=== PATIENT | male | born 1950 | race Caucasian/White ===

== ENCOUNTER 2016-09-15 07:45 | Inpatient (IN) | payer OTHER ==
[2016-08-21 08:45] VITALS: BMI 39.0
--- NOTE | 2016-08-21 09:29 | PAT Medication Instructions ---
Service Date Aug 21, 2016. Current Home Medication List Atorvastatin (Lipitor), 20 MG PO QPM Cyclobenzaprine HCl (Cyclobenzaprine HCl), 10 MG PO HS Gabapentin (Neurontin), 300 MG PO BID Glimepiride (Glimepiride), 4 MG PO QAM Lisinopril (Lisinopril), 10 MG PO QAM Loratadine (Claritin), 10 MG PO QAM PRN for SEASONAL ALLERGIES Meloxicam (Mobic), 15 MG PO QAM Pioglitazone (Actos), 1 TAB PO QAM Tramadol (Ultram), 50 MG PO HS Medication Instructions For Your Scheduled Surgery - Hold the following medications 10 days prior to surgery per surgeon's instructions: Meloxicam (Mobic), 15 MG PO QAM - Hold the following medications the morning of surgery: Glimepiride (Glimepiride), 4 MG PO QAM Lisinopril (Lisinopril), 10 MG PO QAM Pioglitazone (Actos), 1 TAB PO QAM Loratadine (Claritin), 10 MG PO QAM PRN for SEASONAL ALLERGIES - Take the following medications the morning of surgery with a sip of water OTHERWISE NOTHING TO EAT OR DRINK AFTER MIDNIGHT: Gabapentin (Neurontin), 300 MG PO BID - Take the following medications as scheduled the night before surgery: Tramadol (Ultram), 50 MG PO HS Atorvastatin (Lipitor), 20 MG PO QPM Cyclobenzaprine HCl (Cyclobenzaprine HCl), 10 MG PO HS Gabapentin (Neurontin), 300 MG PO BID If you have any questions please call us at [phone] or [phone] or [phone]
[2016-08-21 10:23] LABS: PROTHROMBIN TIME (PATIENT) 10.3 SECONDS (9.0-12.0)
--- NOTE | 2016-08-21 10:33 | DIAGNOSTIC IMAGING REPORT ---
CHEST PREADMISSION(PA/LAT) CLINICAL HISTORY: Preoperative chest COMPARISON STUDY: 04/02/2015 FINDINGS: The cardiac and mediastinal contours are normal. There is no evidence of focal pulmonary consolidation. There is no evidence of failure. No pleural effusions are visualized.[ There is mild widening of the left AC joint, likely chronic. IMPRESSION: No active disease in the chest. Electronically signed by: Dominic Jones M.D. 08/21/2016 10:32 AM Dictated Date/Time: 08/21/2016 10:31 AM
--- NOTE | 2016-09-09 01:48 | HISTORY & PHYSICAL EXAMINATION ---
DATE OF ADMISSION: 09/15/2016 CHIEF COMPLAINT: Left knee pain. HISTORY OF PRESENT ILLNESS: This is a 66-year-old gentleman and has a brother, Alvarez Redd, who works at the [employer], who presents for treatment of his left knee. He has a several-year history of increasing left knee pain and discomfort. He had his left knee scoped by Dr. Cuba back in September of 2015 without any relief. His symptoms have gradually gotten worse. He has been through extensive conservative care including oral medicines, injections of both steroids and viscosupplementation. It is really limiting his ability to be active. He could not dash this past year due to his knee pain. He says he cannot even walk to the mailbox without significant pain. He would like to have his knee fixed. PAST MEDICAL HISTORY: 1. Diabetes x4 years. 2. Hypertension. 3. Obesity with a BMI of 40. 4. Kidney stones. PAST SURGICAL HISTORY: Previous surgeries include: 1. Right distal biceps repair. 2. Left knee arthroscopy done in September 2015. 3. Right knee ACL reconstruction done by Dr. Cuba. 4. Left shoulder surgery x2 by Dr. Cuba. 5. Right shoulder surgery x2. ALLERGIES: None. CURRENT MEDICINES: Include: 1. Loratadine 10 mg a day. 2. Meloxicam 15 mg a day. 3. Lisinopril 10 mg a day. 4. Pioglitazone 30 mg. 5. Glimepiride 4 mg. 6. Cyclobenzaprine 10 mg a day. 7. Trazodone 50 mg at bedtime. 8. Atorvastatin 20 mg 3 times a day. 9. Gabapentin 300 mg twice a day. SOCIAL HISTORY: A 66-year-old male. He is . His brother is Alvarez Redd. Works at the [employer]. He is from [place]. He does chew tobacco. He does not smoke. FAMILY HISTORY: Noncontributory. REVIEW OF SYSTEMS: Significant for diabetes. Denies any chest pain. No shortness of breath. No history of DVT or PE. PHYSICAL EXAMINATION: GENERAL: Reveals a healthy, pleasant, middle-aged male. He looks to be in pretty good health. HEENT: Benign. NECK: Supple with no lymphadenopathy. LUNGS: Clear to auscultation. HEART: Regular rate and rhythm. ABDOMEN: Soft, nontender, nondistended. EXTREMITIES: Grossly neurovascularly intact except as follows: Examination of the left knee reveals that patient ambulates with a bit of a limp. He has got a moderate size knee joint effusion. He has got well healed portal sites. Range of motion 0-125. No instability. X-RAYS: X-rays of the left knee reviewed. It shows advanced left knee medial compartment DJD. 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 This has progressed from his films a year ago at [facility]. ASSESSMENT: A 66-year-old male diabetic with advanced medial compartment arthritis in his knee, unresponsive to conservative treatment including arthroscopy. He is pretty debilitated by this. Interestingly, he has got a terrible right knee but not all that symptomatic. He would like to proceed with left knee replacement. PLAN: We are going to take him to the operating room and do left total knee replacement. The risks and benefits of this procedure were explained to the patient including but not limited to DVT, PE, , infection, neurological injury, vascular injury, bleeding problem, pain, limited range of motion, stiffness, failure to relieve symptoms, incomplete relief of symptoms, need for further surgery in the future, fracture, leg length inequality, nerve palsy, etc. The patient understands and desires to proceed. Informed consent was obtained. We did talk to him about holding his lisinopril the morning of surgery and Mobic 10 days preoperatively. We will likely put some vancomycin in the cement due to his diabetes and relatively recent surgery. As far as discharge plans, he is planning to be discharged to home using [facility] home health program. I will see him back 2 weeks postop.
[2016-09-15] VITALS (7 sets, daily range): BP systolic 125–154; BP diastolic 64–88; PULSE 73–94; TEMP 36.4–37.2; O2SAT 94–97; Ht 177.8 cm; Wt 124.5 kg
[~2016-09-15] VITALS: Ht 177.8 cm; Wt 124.5 kg
[~2016-09-15 07:45] MED LIST: ACETAMINOPHEN 500 MG TAB PO SCH; ACT30 PO; ATOR-22 PO; BUPIVACAINE LIPOSOME 266 MG, BUPIVACAINE/EPINEPHRINE INJ 50 ML, SODIUM CHLORIDE 0.9% PF... INFIL SCH; CEFAZOLIN 3000 MG/65 ML D5W 65 ML IV SCH; CLR10 PO; FAMOTIDINE 20 MG TAB PO SCH; FLX10 PO; GABA-113 PO; GABAPENTIN 300 MG CAP PO SCH; GLIM4TAB2 PO; LACTATED RINGER'S 1000ML 1,000 ML IV SCH; LACTATED RINGER'S 1000ML 500 ML IV ONE; LACTATED RINGER'S 1000ML IV SCH; LISI-461 PO; MELO7.5T5 PO; METOCLOPRAMIDE HCL 10 MG TAB PO SCH; SCOPOLAMINE 1.5 MG TDSY TD SCH; TRAM-10 PO; TRANEXAMIC ACID INJ 1,000 MG in SODIUM CHLORIDE 0.9% 100ML 100 ML IV SCH
[2016-09-15] MEDS ORDERED: BUPIVACAINE 0.25% 30 ML VIAL ONE (07:53)
[2016-09-15] MEDS ORDERED: BUPIVACAINE 0.5 % 5 MG/1 ML PF 10ML VIAL ONE (07:54)
--- NOTE | 2016-09-15 08:25 | History & Physical Bridge Note ---
H&P Re-Evaluation Bridge Note: I have examined the patient, reviewed the History & Physical and in the interval since the performance of the History & Physical I have noted the following changes of clinical significance: No changes noted
[2016-09-15] MEDS ORDERED: BUPIVACAINE LIPOSOME 1/3% 266 MG/20 ML VIAL INFIL ONE (09:09)
[2016-09-15] MEDS ORDERED: SODIUM CHLORIDE 0.9% PF 50 ML VIAL ONE (09:09)
[2016-09-15] MEDS ORDERED: BUPIVACAINE/EPINEPHRINE 0.25% 1:200,000 30 ML VIAL ONE (09:09)
[2016-09-15] MEDS ORDERED: BACITRACIN 50000 UNIT VIAL ONE (09:09)
[2016-09-15] MEDS ORDERED: LIDOCAINE 2% 20 MG/ML 5ML SYR ONE (09:13)
[2016-09-15] MEDS ORDERED: FENTANYL CITRATE INJ 50 MCG/1 ML 2 ML VIAL ONE (09:13)
[2016-09-15] MEDS ORDERED: PROPOFOL IV EMULSION 10 MG/ML 20 ML VIAL IV ONE ×2 (09:13→11:48)
[2016-09-15] MEDS ORDERED: MIDAZOLAM HCL 1 MG/ML 2ML VIAL ONE (09:13)
[2016-09-15] MEDS ORDERED: KETAMINE HCL INJ 50 MG/ML 10 ML VIAL ONE (10:40)
[2016-09-15] MEDS ORDERED: VANCOMYCIN HCL 1000MG/20ML VIAL ONE (10:52)
[2016-09-15] MEDS ORDERED: PHENYLEPHRINE 100MCG/ML 5ML SYR ONE (10:59)
[2016-09-15] MEDS ORDERED: PHENYLEPHRINE 100MCG/ML 5ML SYR IV PRN (11:45)
[2016-09-15] MEDS ORDERED: ATROPINE SULFATE 0.1 MG/ML 5ML SYR IV PRN (11:45)
[2016-09-15] MEDS ORDERED: EpHEDrine SULFATE INJ 50 MG/ML AMP IV PRN (11:45)
[2016-09-15] MEDS ORDERED: ONDANSETRON INJ 2 MG/ML 2 ML VIAL IV PRN ×2 (11:45→12:00)
[2016-09-15] MEDS ORDERED: HYDROmorphone INJ 2 MG/ML SYR/VIAL IV PRN (11:45)
[2016-09-15] MEDS ORDERED: KETOROLAC TROMETHAMINE 30 MG/ML VIAL IV. PRN (11:45)
--- NOTE | 2016-09-15 11:59 | [facility] Post Operative Brief Note ---
Immediate Operative Summary Operative Date Sep 15, 2016. Pre-Operative Diagnosis left knee medial compartment degenerative joint disease Post-Operative Diagnosis left knee medial compartment degenerative joint disease Procedure(s) Performed Left Total Knee Arthroplasty Surgeon Dr. Marvel Kitchen Clinical Resource Nurse Surgeon(s) Og Gonzalez PA-C Estimated Blood Loss 50mL Findings Left Knee DJD Fluids (cc crystalloids) 1500 cc Specimens A: Left knee bone and tissue Drains None Anesthesia Spinal Complication(s) None Disposition Recovery Room / PACU
[2016-09-15] MEDS ORDERED: DEXTROSE 50% 50 ML SYR IV PRN (12:00)
[2016-09-15] MEDS ORDERED: ZOLPIDEM TARTRATE 5 MG TAB PO PRN (12:00)
[2016-09-15] MEDS ORDERED: LORATADINE 10 MG TAB PO PRN (12:00)
[2016-09-15] MEDS ORDERED: METOCLOPRAMIDE HCL INJ 5 MG/ML 2 ML VIAL IV PRN (12:00)
[2016-09-15] MEDS ORDERED: MoRPHine SULFATE 2 MG/ML CARP IV PRN (12:00)
[2016-09-15] MEDS ORDERED: BISACODYL 10 MG SUPP PR PRN (12:00)
[2016-09-15] MEDS ORDERED: GLUCOSE 10 TABS/TUBE PO PRN (12:00)
[2016-09-15] MEDS ORDERED: ALUMINUM/MAGNESIUM/SIMETH (MAALOX MAX) 30 ML UDC PO PRN (12:00)
[2016-09-15] MEDS ORDERED: TAMSULOSIN HCL 0.4 MG CAP PO PRN (12:00)
[2016-09-15] MEDS ORDERED: MAGNESIUM HYDROXIDE SUSP 30 ML UDC PO PRN (12:00)
[2016-09-15] MEDS ORDERED: GLUCAGON FOR INJ 1 MG VIAL SQ PRN (12:00)
[2016-09-15] MEDS ORDERED: SILVER SULFADIAZINE 1% CR 50 GM JAR EXT PRN (12:00)
[2016-09-15] MEDS ORDERED: GLUCOSE 40% GEL 15 GM TUBE PO PRN (12:00)
--- NOTE | 2016-09-15 12:31 | DIAGNOSTIC IMAGING REPORT ---
LEFT KNEE 1 OR 2 VIEWS ROUTINE CLINICAL HISTORY: Postop examination COMPARISON: None. DISCUSSION: There are postsurgical changes of a total left knee arthroplasty and patellar resurfacing. The femoral and tibial components appear well seated. There is air within the soft tissues consistent with recent surgery. Overlying anterior skin boone are evident. A linear opacity visualized superior to the patella on the lateral view, likely represents overlying artifact. IMPRESSION: Postsurgical changes of a total left knee arthroplasty. Electronically signed by: Dominic Jones M.D. 09/15/2016 12:28 PM Dictated Date/Time: 09/15/2016 12:27 PM
[2016-09-15] MEDS: SODIUM CHLORIDE 0.9% 1000ML 1,000 ML IV SCH ×3 (13:47→23:25)
--- NOTE | 2016-09-15 14:12 | Anesthesiology Progress Note ---
Anesthesia Post Op Note Date & Time Sep 15, 2016 at 14:11 Vital Signs Pain Intensity: 0.0 Vital Signs Past 12 Hours Date Time Temp Pulse Resp B/P Pulse Ox O2 Delivery O2 Flow Rate FiO2 09/15/16 13:35 36.8 84 16 153/82 97 Room Air 09/15/16 13:05 36.6 81 18 126/69 96 Room Air 09/15/16 13:05 96 Room Air 09/15/16 12:50 83 16 117/68 99 Nasal Cannula 2 09/15/16 12:35 36.4 84 16 120/69 99 Nasal Cannula 2 09/15/16 12:25 75 17 145/71 99 Nasal Cannula 2 09/15/16 12:15 36.2 81 16 122/67 99 Nasal Cannula 2 09/15/16 12:05 36.2 86 16 142/81 100 Mask 10 09/15/16 08:16 36.6 80 18 154/88 97 Room Air Notes Mental Status: alert / awake / arousable, participated in evaluation Pt Amnestic to Procedure: Yes Nausea / Vomiting: adequately controlled Pain: adequately controlled Airway Patency, RR, SpO2: stable & adequate BP & HR: stable & adequate Hydration State: stable & adequate Anesthetic Complications: no major complications apparent
[2016-09-15] MEDS: ACETAMINOPHEN 500 MG TAB PO SCH ×2 (14:25→21:35)
[2016-09-15] MEDS: KETOROLAC TROMETHAMINE 15 MG/ML VIAL IV. SCH ×2 (14:25→19:27)
[2016-09-15] MEDS: FERROUS GLUCONATE 324 MG TAB PO SCH ×2 (14:25→17:59)
[2016-09-15] MEDS: CHECK SCOPOLAMINE PATCH PLACEMENT SCH ×2 (16:00→23:26)
[2016-09-15] MEDS: OXYCODONE HCL IR 5 MG TAB (IMMEDIATE RELEASE) PO PRN ×2 (17:56→23:25)
[2016-09-15] MEDS: CEFAZOLIN IV 2,000 MG in DEXTROSE 5% 50ML 50 ML IV SCH (18:00)
[2016-09-15] MEDS ORDERED: TRANEXAMIC ACID INJ 1,000 MG in SODIUM CHLORIDE 0.9% 100ML 100 ML IV SCH (18:00)
[2016-09-15] MEDS: INSULIN HUMAN REGULAR SC SCH ×2 (18:02→21:43)
--- NOTE | 2016-09-15 21:25 | PROGRESS NOTE ---
DATE: 09/15/2016 SUBJECTIVE: This 66-year-old gentleman postop from a left knee replacement. He is doing pretty well. He rates his pain at a 4-5/10. No chest pain or shortness of breath. Not feeling dizzy or lightheaded. OBJECTIVE: VITAL SIGNS: Temperature 36.5. Vital signs stable. GENERAL: Reveals a pleasant, middle-aged male. He is sitting up and talking to his nurse this afternoon when I visited him. LUNGS: Clear to auscultation. HEART: Regular rate and rhythm. ABDOMEN: Soft, nontender. EXTREMITIES: Grossly neurovascularly intact except as follows: Examination of the left knee and leg reveals the leg to be well aligned. Dressing is clean, dry, and intact. He can dorsiflex and plantarflex his foot appropriately. He is neurologically intact. X-RAYS: X-rays of the left knee from recovery room were reviewed. It shows a cemented posterior stabilized total knee arthroplasty. Components looked to be in good position. No signs of problems. ASSESSMENT: A 66-year-old male diabetic postop from a left knee replacement, doing well. His pain is reasonably well controlled, but will likely need to supplement meds as his spinal wears off. PLAN: 1. DVT prophylaxis including thigh-high TEDs, SCDs, and aspirin twice a day. 2. PT/OT. Weightbearing as tolerated. Left total knee protocol. 3. Pain control, doing pretty well with current pain regimen. We will have to supplement this as the block wears off. 4. IV antibiotics x 24 hours. 5. Disposition: He is planning to be discharged to home with [facility] home health once adequately recovered.
[2016-09-15] MEDS: TAPENTADOL ER 50 MG TABCR PO SCH (21:32)
[2016-09-15] MEDS: TRAMADOL HCL 50 MG TAB PO SCH (21:32)
[2016-09-15] MEDS: ASPIRIN 325 MG ECTAB PO SCH (21:33)
[2016-09-15] MEDS: GABAPENTIN 300 MG CAP PO SCH (21:33)
[2016-09-15] MEDS: CYCLOBENZAPRINE HCL 10 MG TAB PO SCH (21:33)
[2016-09-15] MEDS: DOCUSATE SODIUM 100 MG CAP PO SCH (21:34)
[2016-09-15] MEDS: ATORVASTATIN 20 MG TAB PO SCH (21:34)
--- NOTE | 2016-09-16 01:40 | OPERATIVE REPORT ---
DATE OF OPERATION: 09/15/2016 SURGEON: Marvel Kitchen MD SPORTS COORDINATOR: ADRIANA Dalal PREOPERATIVE DIAGNOSIS: Left knee degenerative joint disease. POSTOPERATIVE DIAGNOSIS: Same. PROCEDURE PERFORMED: Left cemented posterior stabilized total knee arthroplasty. COMPLICATIONS: None. ESTIMATED BLOOD LOSS: 50 mL FLUID REPLACEMENT: 1500 mL crystalloid fluid replacement. TOURNIQUET TIME: 55 minutes at 300 mmHg. ANESTHESIA: Spinal with adductor canal block. DRAINS: None. SPECIMENS: Left knee sent for pathology. OPERATIVE INDICATIONS: The patient is a 66-year-old gentleman who has had a long history of knee problems in the past. Over the past several years, he has developed increased pain and discomfort in the left knee. His left knee scoped by Dr. Cuba about a year ago without any relief and things have just gotten worse since. X-rays show progressive left knee arthritis with loss of his medial joint space and area of what looks like avascular necrosis of the tibial plateau. The patient failed conservative treatment and elected to proceed with total knee arthroplasty. OPERATIVE FINDINGS: Operative findings revealed advanced left knee medial compartment DJD. He did look like he had a segment of avascular necrosis of the medial tibial plateau. He had grade 4 [id number] disease of the distal femur as well as the proximal tibia. There is no eburnation. The lateral and patellofemoral compartments were fairly well preserved. OPERATIVE IMPLANTS: Operative implants consisted of: 1. Biomet Vanguard size 75 left femoral component. 2. Biomet size 79 tibial tray. 3. A 10 mm posterior stabilized polyethylene insert. 4. A 34 x 8.5 all poly patella. OPERATIVE PROCEDURE: The patient taken to the operating room, identified and placed on the operating table in supine position. All contact areas were appropriately padded. IV antibiotics were provided by the anesthesia team. A spinal anesthetic and adductor canal block had been provided in the holding area. Villeda catheter was placed in sterile fashion. Left thigh tourniquet was then placed and the left lower extremity was then prepped and draped in the usual sterile fashion. Left leg was elevated and exsanguinated with Esmarch and tourniquet was placed at 300 mmHg. An anterior approach to the left knee was then performed through a longitudinal incision centered over the patella. Sharp dissection was carried out through the subcutaneous tissues down to the level of the extensor mechanism. A medial parapatellar arthrotomy incision was made. Some subperiosteal dissection was carried out medially. The fat pad was resected from beneath the patellar tendon. The lateral patellofemoral ligament was released. The patella was everted and knee was flexed. The osteophytes were taken off the distal femur. The ACL and PCL were then released from the distal femur and the tibia subluxated anteriorly. The external tibial alignment jig was then placed in the anterior face of the tibia and adjusted 16 mm medially. Proximal tibial cut was made to remove about 2 mm of bone from the most deficient aspect of the medial tibial plateau. The tibia was then sized to a size 79. Some osteophytes were taken off medial and posteromedially. Attention was then drawn to the femur. The distal femur was entered with a sharp drill bit. Intramedullary canal was suctioned. A left 6-degree valgus cutting guide was placed. Distal femoral cutting block was pinned in place. Distal femoral cut was made to take an additional 3 mm of bone off the distal femur. The femur was then sized to a size 75. We did downsize this slightly. The AP cutting block was pinned parallel to the epicondylar axis, which was 5 degrees of external rotation. The anterior cut, anterior chamfer, posterior cut, posterior chamfer cuts were made. Box cutting guide was placed and adjusted slightly lateral and the box cut was made. The knee was flexed. The remnants of the medial and lateral meniscus were excised. The osteophytes were taken off the posterior aspect of the femur. Trial femoral component was placed. Tibial tray was pinned in maximum external rotation and drill and stem punch were used to create defect in proximal tibia for the tibial tray. The knee was then trialed and the 10 mm insert fit most appropriately. Attention was then drawn to the patella. The patella was cleaned of all soft tissues. Patellar thickness measured 23 mm in thickness and was cut down to 14. It was sized to a size 34 patella. Lug holes were drilled for the 34 patella. The lateral osteophyte was removed. Patella button was placed. Knee was taken through range of motion and the patella tracked nicely with no thumbs test. Attention was then drawn toward placement of permanent components. All trial components were removed. A bone plug was placed in the distal femur to limit blood loss. A double batch of Palacos G cement was mixed with and additional gram of Vancomycin added due to Diabetes and previous surgery. A left size 75 posterior stabilized femoral component, size 79 tibial tray, a 10 mm posterior stabilized polyethylene insert, and a 34 x 8.5 all poly patella were then cemented in place. Knee was brought out into full extension until cement hardened. A final cement check was then performed. Pericapsular tissues were injected with a total of 100 mL of a combination of 20 mL of Exparel, 30 mL of normal saline, 50 mL of 0.25% Marcaine with epinephrine. The patient did receive 1 gram of tranexamic acid. The tourniquet was let down for final tourniquet time of 55 minutes. Hemostasis was assured with use of electrocautery. The extensor mechanism was then closed with a combination of #1 PDS suture and #1 Vicryl suture in a [id number] fashion. Extensor mechanism was checked and found to be intact. The subcutaneous tissues were then closed with 2-0 Dexon suture in a buried interrupted fashion. Skin was closed skin boone. Leg was then cleaned and dried and a sterile dressing of Xeroform, 4 x 4, sterile cast padding and Alec bandage were applied. The patient was then transferred to the recovery room in stable condition. The patient tolerated the procedure well with no complications. All needle and sponge counts were correct at the end of the operation. ADDENDUM: We did put 1 additional gram of vancomycin in this patient cement as he is diabetic, which is at some points is not real well controlled and had a recent knee surgery which I felt predispose him to increased risk of infection and warranted additional antibiotics in the cement. I attest to the content of the Intraoperative Record and any orders documented therein. Any exceptions are noted below. JACKIED
[2016-09-16] MEDS: CEFAZOLIN IV 2,000 MG in DEXTROSE 5% 50ML 50 ML IV SCH (02:47)
[2016-09-16] MEDS: KETOROLAC TROMETHAMINE 15 MG/ML VIAL IV. SCH ×4 (02:48→21:52)
[2016-09-16 03:50] VITALS: BP 149/83; PULSE 66; TEMP 36.9; O2SAT 95
[2016-09-16] MEDS: ACETAMINOPHEN 500 MG TAB PO SCH ×3 (05:37→21:55)
[2016-09-16] MEDS: SODIUM CHLORIDE 0.9% 1000ML 1,000 ML IV SCH (06:40)
[2016-09-16 07:15] LABS: HEMATOCRIT 38.3 % (42-52); MEAN CELL VOLUME 91.6 fL (80-100); MEAN CORPUSCULAR HEMOGLOBIN 30.6 pg (25-34); MEAN CORPUSCULAR HGB CONC 33.4 g/dl (32-36); MEAN PLATELET VOLUME 9.6 fL (7.4-10.4); PLATELET COUNT 178 K/uL (130-400); RED BLOOD COUNT 4.18 M/uL (4.7-6.1); WHITE BLOOD COUNT 8.98 K/uL (4.8-10.8)
[2016-09-16 07:39] VITALS: BP 140/70; PULSE 75; TEMP 36.9; O2SAT 96
[2016-09-16 07:42] LABS: BUN/CREATININE RATIO 12.9 (10-20); CALCIUM 8.4 mg/dl (8.5-10.1); CREATININE 0.87 mg/dl (0.60-1.40); POTASSIUM 3.9 mmol/L (3.5-5.1)
[2016-09-16 07:48] VITALS: O2SAT 96
[2016-09-16] MEDS: CHECK SCOPOLAMINE PATCH PLACEMENT SCH ×2 (07:54→16:04)
[2016-09-16] MEDS: GLIMEPIRIDE 2 MG TAB PO SCH (07:59)
[2016-09-16] MEDS: FERROUS GLUCONATE 324 MG TAB PO SCH ×3 (07:59→18:15)
[2016-09-16] MEDS: INSULIN HUMAN REGULAR SC SCH ×4 (08:00→21:00)
--- NOTE | 2016-09-16 08:39 | PROGRESS NOTE ---
DATE: 09/16/2016 SUBJECTIVE: A 66-year-old gentleman postop day #1 from left knee replacement. He is doing pretty well. He rates his pain at worse than a 5. Had a pretty good night. No chest pain or shortness of breath. Not feeling dizzy or lightheaded. OBJECTIVE: VITAL SIGNS: Temperature 36.9. Vital signs stable. PHYSICAL EXAMINATION: GENERAL: Reveals a healthy, pleasant middle-aged male. He is sitting up in bed and looks pretty comfortable. LUNGS: Clear to auscultation. HEART: Regular rate and rhythm. ABDOMEN: Soft, nontender, nondistended. EXTREMITIES: Grossly neurovascularly intact except as follows: Examination of the left leg reveals the dressing to be clean, dry and intact. He can dorsiflex and plantarflex his foot appropriately. NEUROLOGIC: Intact. LABORATORY DATA: Hemoglobin 12.8, hematocrit 38.3. Electrolytes are stable. ASSESSMENT: A 66-year-old gentleman postop day #1 from left knee replacement, doing pretty well. Pain is reasonably well controlled. PLAN: 1. DVT prophylaxis including thigh-high TEDs, SCDs, and aspirin twice a day. 2. PT/OT. Weightbearing as tolerated. Left total hip protocol. 3. Pain control, doing pretty well with current pain regimen. 4. Disposition: Planning to be discharged to home with some home health once adequately recovered.
[2016-09-16] MEDS: GABAPENTIN 300 MG CAP PO SCH ×2 (10:03→21:54)
[2016-09-16] MEDS: DOCUSATE SODIUM 100 MG CAP PO SCH ×2 (10:03→21:54)
[2016-09-16] MEDS: ASPIRIN 325 MG ECTAB PO SCH ×2 (10:03→21:54)
[2016-09-16] MEDS: PANTOprazole SOD 40 MG TAB PO SCH (10:04)
[2016-09-16] MEDS: MULTIVITAMIN TAB PO SCH (10:04)
[2016-09-16] MEDS: PIOGLITAZONE TAB 15 MG TAB PO SCH (10:05)
[2016-09-16] MEDS: OXYCODONE HCL IR 5 MG TAB (IMMEDIATE RELEASE) PO PRN ×2 (10:21→18:18)
[2016-09-16] MEDS: TAPENTADOL ER 50 MG TABCR PO SCH ×2 (10:21→21:54)
[2016-09-16 11:26] VITALS: BP 182/82; PULSE 89; TEMP 36.5; O2SAT 95
[2016-09-16 16:05] VITALS: BP 162/80; PULSE 85; TEMP 37.1; O2SAT 94
[2016-09-16] MEDS: CYCLOBENZAPRINE HCL 10 MG TAB PO SCH (21:54)
[2016-09-16] MEDS: ATORVASTATIN 20 MG TAB PO SCH (21:54)
[2016-09-16] MEDS: TRAMADOL HCL 50 MG TAB PO SCH (21:54)
[2016-09-16 22:51] VITALS: BP 162/83; PULSE 79; TEMP 36.6; O2SAT 95
[2016-09-17] MEDS: CHECK SCOPOLAMINE PATCH PLACEMENT SCH
[2016-09-17] MEDS: KETOROLAC TROMETHAMINE 15 MG/ML VIAL IV. SCH ×2 (02:22→07:37)
[2016-09-17] MEDS: ACETAMINOPHEN 500 MG TAB PO SCH (05:35)
[2016-09-17 06:33] VITALS: BP 167/88; PULSE 88; TEMP 36.4; O2SAT 97
[2016-09-17] MEDS: OXYCODONE HCL IR 5 MG TAB (IMMEDIATE RELEASE) PO PRN (07:36)
[2016-09-17] MEDS: INSULIN HUMAN REGULAR SC SCH (07:39)
[2016-09-17] MEDS: GABAPENTIN 300 MG CAP PO SCH (07:40)
[2016-09-17] MEDS: GLIMEPIRIDE 2 MG TAB PO SCH (07:40)
[2016-09-17] MEDS: ASPIRIN 325 MG ECTAB PO SCH (07:41)
[2016-09-17] MEDS: FERROUS GLUCONATE 324 MG TAB PO SCH (07:41)
[2016-09-17] MEDS: DOCUSATE SODIUM 100 MG CAP PO SCH (07:41)
[2016-09-17] MEDS: PANTOprazole SOD 40 MG TAB PO SCH (07:41)
[2016-09-17] MEDS: MULTIVITAMIN TAB PO SCH (07:42)
[2016-09-17] MEDS: PIOGLITAZONE TAB 15 MG TAB PO SCH (07:42)
[2016-09-17] MEDS ORDERED: OXYC-57 PO (07:50)
[2016-09-17] MEDS ORDERED: MORP15TA19 PO (07:50)
[2016-09-17] MEDS ORDERED: ASPEC325 PO (07:50)
[2016-09-17] MEDS: TAPENTADOL ER 50 MG TABCR PO SCH (07:52)
--- NOTE | 2016-09-17 07:52 | Discharge Instructions ---
Discharge Instructions Date of Service Sep 17, 2016. Admission Reason for Admission: Left Knee Osteoarthritis Discharge Discharge Diagnosis / Problem: Left Knee Replacement Discharge Goals Goal(s): Decrease discomfort, Improve function, Increase independence, Improve disease control, Therapeutic intervention Activity Recommendations Activity Limitations: per Instructions/Follow-up section Weightbearing Status: Left weightbearing . Instructions / Follow-Up Instructions / Follow-Up ACTIVITY RECOMMENDATIONS: Physical Therapy: * You will go to physical therapy three times each week for four to six weeks after your surgery in order to regain your knee range of motion and to retrain your knee to work properly. * It is just as important to make sure you are getting your knee perfectly straight as it is to regain your knee bend. * Taking a pain pill an hour before therapy can help you have a more productive and comfortable therapy session. Home Exercise: * You were shown a series of exercises (heel props, heel slides, etc.) in the hospital. Do these exercises three to four times each day including the exercises you were shown in physical therapy. Walking: * Get up and walk several times each day. For the first four weeks, try not to stand or walk for more than one hour at a time. If you do stand or walk for more than one hour, you will not hurt anything, but your knee and leg will likely swell. * As you feel comfortable, you may change from the walker or crutches to a cane and then to independent walking. MEDICATIONS: New Medicine: * You will likely be taking one or more of these medications: 1. MS Contin - A long-acting pain medication. Take 1 tablet twice a day for the first ten days to decrease your baseline level of pain. 2. Percocet - A quick and shorter-acting pain medication. Take one to two tablets every four to six hours to lessen your pain. 3. Aspirin - Thins your blood to lessen the chance of forming a blood clot. * The most common side effects of pain medicine and iron are nausea and constipation. If nausea or constipation is too much of a problem or if you have any questions about your new medicines or doses, call [facility] at . We will try to help you manage these issues. VERY IMPORTANT TO READ AND REVIEW" Pain: * The immediate post-operative period after knee replacement surgery is often quite painful. * You are given a prescription for pain medicine. You should take it, as directed, when you need it, especially before physical therapy and before going to bed. Pain that interferes with sleep is very common and can last several months. * You will likely need pain medicine for the first four to six weeks. It will not stop all of the pain. The pain will lessen and as you feel better, you may change to milder pain medicine such as Tylenol. * The most common side effects of pain medicine are nausea and constipation, so don't take more than you need. SPECIAL CARE INSTRUCTIONS: TEDs/Elastic Stockings: * The white elastic stockings help limit swelling and prevent blood clots from forming in your legs. The more you wear them, the more they work. * Wear them for six weeks after knee replacement surgery and four weeks after partial knee replacement. Prevention of Infection: * Take antibiotics one hour before any dental cleaning, dental work, urological procedure, gastrointestinal procedure or any invasive surgery in order to prevent your new joint from getting infected. * You may get the antibiotics from the doctor performing the procedure or you may call our office at before and we will call in a prescription to the pharmacy of your choice. Things to Watch For: * Drainage from the incision site that occurs more than one week after your surgery. * Severely increased knee/leg pain or swelling. * Increased redness at the incision site. * Fever above 102 degrees Fahrenheit. * Unusual chest pain or shortness of breath. * Unusual pain or burning with urination. Call [facility] at with any of the above problems or if you have any questions about your medicines or recovery. FOLLOW UP VISIT: Make an appointment to see your doctor for approximately two weeks after surgery for a progress check and staple removal by calling the office at . Current Hospital Diet Patient's current hospital diet: Diabetes Type 2 Diet Discharge Diet Recommended Diet: Diabetes Type 2 Diet Procedures Procedures Performed: Left Total Knee Arthroplasty Pending Studies Studies pending at discharge: no Medical Emergencies . Who to Call and When: Medical Emergencies: If at any time you feel your situation is an emergency, please call 101 immediately. . Non-Emergent Contact Non-Emergency issues call your: Surgeon . "Provider Documentation" section prepared by Marvel Kitchen. . VTE Core Measure Inpt VTE Proph given/why not?: Other Anticoagulation, T.E.D. Stockings, SCD's
--- NOTE | 2016-09-17 08:32 | PROGRESS NOTE ---
DATE: 09/17/2016 SUBJECTIVE: A 66-year-old gentleman postop day #2 from a left knee replacement. He is doing pretty well. Pain is reasonably well controlled. He had a pretty good night. Therapy went reasonably well yesterday. Denies any chest pain or shortness of breath. Not feeling dizzy or lightheaded. He feels like he is ready to go home. OBJECTIVE: VITAL SIGNS: Temperature 36.4. Vital signs stable. GENERAL: Physical examination reveals a healthy, pleasant, middle-aged male. He is sitting up in his bed at his bedside and looking pretty comfortable. LUNGS: Clear to auscultation. HEART: Regular rate and rhythm. ABDOMEN: Soft, nontender, and nondistended. EXTREMITIES: Grossly neurovascularly intact except as follows: Examination of the left leg reveals the dressing to be clean, dry, and intact. He can dorsiflex and plantarflex his foot appropriately. He is neurologically intact. ASSESSMENT: A 66-year-old gentleman postop day #2 from a left knee replacement, doing pretty well. Pain is controlled. PLAN: 1. DVT prophylaxis including thigh-high TEDs, SCDs, and aspirin twice a day. 2. PT/OT. Weightbearing as tolerated. Left total knee protocol. 3. Pain control. Doing pretty well with current pain regimen. 4. Disposition: Plan to discharge to home with some home health after therapy. [facility]
[2016-09-17 10:31] VITALS: BP 167/88; PULSE 88; TEMP 36.4; O2SAT 97
--- NOTE | 2016-09-20 15:15 | DISCHARGE SUMMARY ---
ADMITTING PHYSICIAN AND SURGEON: Dr. Kitchen. ADMITTING DIAGNOSIS: Left knee degenerative joint disease. SURGERY PERFORMED: Left total knee arthroplasty. SECONDARY DIAGNOSES: Include diabetes, hypertension, obesity, kidney stones. CONSULTS: None obtained. HISTORY AND PHYSICAL EXAMINATION: Well documented in the patient's chart. HOSPITAL COURSE: The patient admitted on 09/15/2016, underwent total knee arthroplasty, tolerated the procedure well. There were no complications. He was transferred to the PACU postoperatively and later to the orthopedic floor for further care. He was given Ancef for antibiotic prophylaxis, CHERELLE stockings, SCDs and aspirin for DVT prophylaxis. Hemoglobin, hematocrit and vital signs were monitored during hospital stay and remained stable. He did not require any blood transfusions. There were no complications. By postoperative day 2, he was tolerating a diabetic diet. Pain was controlled with oral pain medicine. He was participating in physical therapy and had no signs or symptoms of deep vein thrombosis. On postop day 2, he was discharged home, set up with home health services, given printed discharge instructions including prescriptions for aspirin 325 mg b.i.d., MS Contin and Percocet. Continue his home medicines. Continue physical therapy, weightbearing as tolerated, CHERELLE stockings. Follow up in 10-12 days or sooner if there are any problems or concerns.
== END 2016-09-17 11:38 | disposition home health service (06) | DRG 470 ==
LOC: CANRESERV → ENRESERVTM → ENRESERVDT → C.ACU 07:45 → C.MSW 08:00
PROVIDERS: ADMIT Orthopaedic Surgery Sports Medicine; ATTEND Orthopaedic Surgery Sports Medicine
PROC: 0SRD0J9 Replacement of Left Knee Joint with Synthetic Substitute, Cemented, Open Approach (ICD-10-PCS; principal; 2016-09-15 10:40)
DX: M17.12 Unilateral primary osteoarthritis, left knee (principal); Z68.41 Body mass index [BMI] 40.0-44.9, adult; E11.9 Type 2 diabetes mellitus without complications; E66.9 Obesity, unspecified; I10 Essential (primary) hypertension; F17.290 Nicotine dependence, other tobacco product, uncomplicated; E78.00 Pure hypercholesterolemia, unspecified; Z79.84 Long term (current) use of oral hypoglycemic drugs; Z79.1 Long term (current) use of non-steroidal anti-inflammatories (NSAID); Z79.899 Other long term (current) drug therapy; Z79.891 Long term (current) use of opiate analgesic

== ENCOUNTER 2018-11-05 06:12 | Inpatient (IN) ==
--- NOTE | 2018-10-04 12:57 | PAT Medication Instructions ---
Medication Instructions Date of Service October 04, 2018 Home Medications cyclobenzaprine 10 mg PO HS gabapentin 400 mg PO BID glimepiride 4 mg PO QAM lisinopril 10 mg PO QAM meloxicam 15 mg PO QAM omeprazole 40 mg PO QAM pioglitazone 30 mg PO QAM tramadol 100 mg PO HS ASK your surgeon for instructions meloxicam 15 mg PO QAM DO NOT take the morning of surgery glimepiride 4 mg PO QAM lisinopril 10 mg PO QAM pioglitazone 30 mg PO QAM Take morning of surgery With a small sip of water, OTHERWISE NOTHING TO EAT OR DRINK AFTER MIDNIGHT: gabapentin 400 mg PO BID omeprazole 40 mg PO QAM Take evening before surgery cyclobenzaprine 10 mg PO HS gabapentin 400 mg PO BID tramadol 100 mg PO HS Other Notes If you have any questions please call us at [phone] or [phone] or [phone] or [phone]
--- NOTE | 2018-10-07 10:06 | Anesthesiology Consultation ---
Date of Service October 07, 2018 Assessment & Plan (1) Encounter for pre-operative examination: - Check BSG AM DOS Chart Review Chart Review: Acceptable Risk for Surgery and Patient seen in Pre Admission Testing Teaching & Discussion Pre-Anesthesia Teaching/Discussion Notes: Instructed NPO after midnight before surgery,except medications with 15 cc of water. Medication instructions provided according to the PAT guidelines. History Surgery Operation Date: 11/05/18 08:50 Proposed Procedures p Right Total Knee Arthroplasty, Possible Hardware Removal - Marvel Kitchen MD Height/Weight Height: 5 ft 10 in Weight: 122.5 kg Allergies Allergy/AdvReac Type Severity Reaction Status Date / Time No Known Allergies Allergy Verified 09/30/18 10:18 Medications Home Medications Medication Instructions Recorded Confirmed Last Taken cyclobenzaprine 10 mg PO HS 06/21/18 09/30/18 Unknown gabapentin 400 mg PO BID 06/21/18 09/30/18 Unknown glimepiride 4 mg PO QAM 06/21/18 09/30/18 Unknown lisinopril 10 mg PO QAM 06/21/18 09/30/18 Unknown meloxicam 15 mg PO QAM 06/21/18 09/30/18 Unknown omeprazole 40 mg PO QAM 06/21/18 09/30/18 Unknown pioglitazone 30 mg PO QAM 06/21/18 09/30/18 Unknown tramadol 100 mg PO HS 06/21/18 09/30/18 Unknown Past Medical History Medical History Diabetes mellitus, type 2 NIDDM GERD (gastroesophageal reflux disease) OCCASIONAL Hypertension Kidney stones Obesity Osteoarthritis Exercise / Class Metabolic Activity III < 4 Walking/Shop/Light housework Past Family History Family History Mother Family history of diabetes mellitus Past Surgical History Surgical History History of arthroscopy RIGHT KNEE X3, LEFT KNEE X2 History of arthroscopy B/L SHOULDER + TENDON REPAIR History of cataract surgery RIGHT History of cholecystectomy History of herniorrhaphy UMBILICAL History of lithotripsy X2 History of total knee replacement LEFT Past Anesthesia History No Hx of Anesthesia Complications and Difficult Airway History of PONV No Hx of PONV and No Hx of Motion Sickness Social History Smoking Status: Never smoker Do You Dip or Chew Tobacco: Yes (1/2 CAN/DAY- ADVISED NOT TO CHEW AM DOS) Hx Alcohol Use: No Hx Substance Use: No substance use type: does not use Review of Systems Patient denies chest pain, shortness of breath, cough, wheezing, palpitations. Physical Exam Vital Signs VITALS BP 144/85 P 73 TEMP 98.7 SP02 98%RA RESP 16 PHYSICAL Full neck and c-spine range of motion. Full TMJ range of motion. TMD 4 finger breaths Mallampati Score 3 Dentition: edentulous Lungs: clear throughout to auscultation Cardiac: regular rate and rhythm, no murmurs noted Spine: normal Carotid arteries: negative bruit Extremities: no edema Trimmed verma Small oral opening Testing Electrocardiogram Date: 05/08/18 SR with marked sinus arrhythmia at 75bpm. IVCD. NS ST/TWA. Small inferior q waves of uncertain significance (similar changes noted on 02/2014 EKG included in chart). Chest X-Ray Date: 10/07/18 Findings: + NAD Laboratory Results 10/07/18 10:23 10/07/18 10:23 Blood Type A Positive 10/07/18 10:23 Antibody Screen NEGATIVE 10/07/18 10:23 PT 10.2 Seconds (9.0-12.0) 10/07/18 10:23 INR 1.0 (0.9-1.1) 10/07/18 10:23 APTT 27.1 Seconds (21.0-31.0) 10/07/18 10:23 Hemoglobin A1c 6.4 % (4.5-5.6) H 10/07/18 10:23
[2018-10-07 10:38] LABS: Basophils # (auto) 0.02 K/uL (0-0.2); Basophils % (auto) 0.3 %; Eosinophils # (auto) 0.15 K/uL (0-0.5); Eosinophils % (auto) 1.9 %; Hematocrit (blood only) 46.6 % (42-52); Hemoglobin 16.6 g/dL (14.0-18.0); Immature Granulocytes # (auto) 0.03 K/uL (0.00-0.02); Immature Granulocytes % (auto) 0.4 %; Lymphocytes # (auto) 2.52 K/uL (1.2-3.4); Lymphocytes % (auto) 31.5 %; Mean Corpuscular Hgb Conc 35.6 g/dL (32-36); Mean Corpuscular Volume 90.3 fL (80-100); Mean Platelet Volume 9.9 fL (7.4-10.4); Monocytes # (auto) 0.72 K/uL (0.11-0.59); Neutrophils # (auto) 4.56 K/uL (1.4-6.5); Neutrophils % (auto) 56.9 %; Platelet Count 217 K/uL (130-400); RDW Coefficient of Variation 14.3 % (11.5-14.5); RDW Standard Deviation 47.2 fL (36.4-46.3); Red Blood Count 5.16 M/uL (4.7-6.1)
--- NOTE | 2018-10-07 10:41 | XRay Report ---
XR chest Pre-admission PA/Lat CLINICAL HISTORY: Preoperative evaluation. COMPARISON STUDY: Chest radiograph August 21, 2016. FINDINGS: Lung volumes are normal. There is no pneumothorax or pleural effusion. There is no consolid ation or evidence for pulmonary edema. Cardiomediastinal silhouette is normal. IMPRESSION: No acute cardiopulmonary findings. Electronically signed by: Jose Pinedo M.D. 10/07/2018 10:40 AM
[2018-10-07 10:55] LABS: Partial Thromboplastin Time 27.1 Seconds (21.0-31.0); Prothrombin Time 10.2 Seconds (9.0-12.0)
[2018-10-07 10:58] LABS: Estimated Average Glucose 137 mg/dl; Hemoglobin A1C 6.4 % (4.5-5.6)
[2018-10-07 12:05] LABS: BUN Creatinine Ratio 13.4 (10-20); C Reactive Protein 0.45 mg/dl (0-0.29); Creatinine Clr Calc Pharmacy 110.9 ml/min; Est GFR (African American) 104.7; Est GFR (Non-African American) 90.4; Potassium 4.2 mmol/L (3.5-5.1)
--- NOTE | 2018-10-30 13:39 | History and Physical Report ---
DATE OF ADMISSION: 11/05/2018 CHIEF COMPLAINT: Right knee pain. HISTORY OF PRESENT ILLNESS: The patient is a 68-year-old gentleman who is well known to me from a previous left knee replacement done 2 years ago. He has done well from this side. He has got a long history of right knee pain and discomfort and had multiple surgeries on this knee in the past. Most recent surgery was back in 2002. He had an ACL reconstruction with allograft done by Dr. Cuba. He continues to be bothered by persistent right knee pain and discomfort, just gradually gotten worse over the years. It is global pain. The more he walks, the more it hurts. His walking tolerance is about 1/4 mile. He has had injection, which provided very temporary relief only. He has been through various medicines. He would like to proceed with definitive treatment. Of note, we had him scheduled for knee surgery in the past, but he developed some back problems and had to put this off. The back problems have now cleared up. PAST MEDICAL HISTORY: Include: 1. Diabetes x6 years with an A1c of about 6.4. 2. Hypertension. 3. Obesity with a BMI of 39. 4. Kidney stones. 5. Sleep apnea. PREVIOUS SURGERIES: Include: 1. Left knee replacement done in 09/15/2016. 2. Multiple right knee surgeries, most recently in 2002 with allograft reconstruction. 3. Bilateral shoulder surgery. 4. Left biceps repair. 5. Cholecystectomy. 6. Right eye surgery. ALLERGIES: None. CURRENT MEDICINES: 1. Loratadine 10 mg. 2. Meloxicam 15 mg. 3. Lisinopril 10 mg a day. 4. Pioglitazone 30 mg. 5. Glimepiride 4 mg. 6. Cyclobenzaprine 10 mg. 7. Trazodone 50 mg at bedtime. 8. Atorvastatin 20 mg a day. 9. Gabapentin 300 mg twice a day. SOCIAL HISTORY: A 68-year-old male. He is . 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 He is from [place]. He does chew tobacco. Does not smoke. FAMILY HISTORY: Significant for diabetes. REVIEW OF SYSTEMS: Significant for diabetes, reasonably well controlled. No chest pain or shortness of breath. No DVT or PE. No known bleeding problems. PHYSICAL EXAMINATION: GENERAL: Shows a pleasant, middle-aged male, who looks to be in reasonably good health. HEENT: Benign. NECK: Supple. No lymphadenopathy. LUNGS: Clear to auscultation. HEART: Regular rate and rhythm. ABDOMEN: Soft, nontender, nondistended. EXTREMITIES: Grossly neurovascularly intact except as follows. Examination of the right knee reveals the patient walks with a bit of a limp. He has got varus alignment to his knee. His range of motion is about 10 degrees show full extension to 110 degrees of flexion. There is no gross instability. He has no pain with hip motion. He is neurologically intact. X-RAYS: X-ray of the right knee reviewed. It shows advanced right knee DJD. He has had extensive tricompartment disease with tibial femoral subluxation. He has got evidence of previous ACL reconstruction with hardware in place. ASSESSMENT: A 68-year-old gentleman 2 years out from left knee replacement with advanced right knee degenerative joint disease with a history of multiple surgeries in the past. He has failed conservative treatment and would like to have his right knee replaced. PLAN: We will take him to the Operating Room and do right total knee replacement. It is likely we will need to take out some of these interference screws. The risks and benefits of the right total knee replacement were explained to the patient including but not limited to DVT, PE, , infection, neurological injury, vascular injury, bleeding problem, pain, limited range of motion, stiffness, failure to relieve symptoms, incomplete relief of symptoms, need for further surgery in the future, fracture, leg length inequality, nerve palsy, persistent pain, etc. The patient understands and desires to proceed. Informed consent was obtained. We will likely put some vancomycin in the cement due to history of multiple surgeries on this side and his diabetes, which put him at increased risk of infection. We did talk to him about holding his lisinopril the morning of surgery and the meloxicam 2 weeks preop. We will use insulin sliding scale coverage in the hospital.
[~2018-11-05 06:12] MED LIST changes: -ACT30 PO; -ATOR-22 PO; -BUPIVACAINE LIPOSOME 266 MG, BUPIVACAINE/EPINEPHRINE INJ 50 ML, SODIUM CHLORIDE 0.9% PF... INFIL SCH; +BUPIVACAINE LIPOSOME/PF 266 MG, BUPIVACAINE/EPINEPHRINE 50 ML, SODIUM CHLORIDE 0.9% 30 ... INFIL SCH; -CEFAZOLIN 3000 MG/65 ML D5W 65 ML IV SCH; +CEFAZOLIN 3000MG 65 ML IV SCH; -CLR10 PO; +CeleBREX 200 MG CAP PO SCH; -FLX10 PO; -GABA-113 PO; -GABAPENTIN 300 MG CAP PO SCH; +GABAPENTIN 300 MG PO SCH; -GLIM4TAB2 PO; -LACTATED RINGER'S 1000ML 1,000 ML IV SCH; -LACTATED RINGER'S 1000ML 500 ML IV ONE; -LACTATED RINGER'S 1000ML IV SCH; -LISI-461 PO; +LR 60ML/HR IV SCH; -MELO7.5T5 PO; -METOCLOPRAMIDE HCL 10 MG TAB PO SCH; +METOCLOPRAMIDE HCL 10 MG TABLET PO SCH; -TRAM-10 PO; -TRANEXAMIC ACID INJ 1,000 MG in SODIUM CHLORIDE 0.9% 100ML 100 ML IV SCH
--- OUTSIDE RECORDS SUMMARY | 2018-11-05 06:18 | External Medical Summary | Continuity of Care Document ---
:1950 Author Name Brigid Lawrence, Provider Address Unavailable Unavailable , Care Team Providers Name Role Phone [facility], Provider Unavailable [email or web address] M.D. Unavailable Unavailable Problems Active medical history not documented Allergies and Adverse Reactions Allergy history not documented Medications Medications not documented Procedures Procedures not documented Immunizations Immunizations not documented Plan of Treatment Planned Observations Planned Goals not documented Results No Known Results Results not documented
[2018-11-05] MEDS ORDERED: ROPIVACAINE 0.5% 5 MG/ML 30 ML VIAL ONE (06:34)
[2018-11-05] MEDS ORDERED: BUPIVACAINE 0.5 % 5 MG/1 ML PF 10ML VIAL ONE (06:34)
--- NOTE | 2018-11-05 06:45 | History & Physical Bridge Note ---
Date of Service November 05, 2018 History & Physical Bridge Note I have examined the patient, reviewed the History & Physical and in the interval since the performance of the History & Physical I have noted the following changes of clinical significance: no changes noted
[2018-11-05] MEDS ORDERED: TRANEXAMIC ACID 1,000 MG in 0.9 % SODIUM CHLORIDE 100 ML IV SCH ×2 (07:00→17:00)
[2018-11-05] MEDS: LR 500ML BOLUS, THEN 15ML/HR IV SCH (07:05)
[2018-11-05] MEDS ORDERED: ePHEDrine sulfate 50 MG/ML AMP IV PRN (07:33)
[2018-11-05] MEDS ORDERED: PHENYLEPHRINE 100MCG/ML 5ML SYR IV PRN (07:33)
[2018-11-05] MEDS ORDERED: fentaNYL citrate 100 MCG/2 ML VIAL IV PRN (07:33)
[2018-11-05] MEDS ORDERED: ATROPINE SULFATE 0.1 MG/ML 10ML SYR IV PRN (07:33)
[2018-11-05] MEDS ORDERED: HYDROmorphone INJ 1 MG/ML SYRINGE IV PRN (07:33)
[2018-11-05] MEDS ORDERED: PROMETHAZINE HCL 12.5 MG in SODIUM CHLORIDE 0.9% 50 ML IV PRN (07:33)
[2018-11-05] MEDS ORDERED: ONDANSETRON INJ 2 MG/ML 2 ML VIAL IV PRN ×2 (07:33→11:29)
[2018-11-05] MEDS ORDERED: fentaNYL citrate 100 MCG/2 ML VIAL ONE ×2 (07:36→10:05)
[2018-11-05] MEDS ORDERED: MIDAZOLAM HCL 1 MG/ML 2ML VIAL ONE (07:36)
[2018-11-05] MEDS ORDERED: BACITRACIN INJ 50,000 UNIT VIAL ONE (08:37)
[2018-11-05] MEDS ORDERED: BUPIVACAINE LIPOSOME 1.3% 266 MG/20 ML VIAL ONE (08:37)
[2018-11-05] MEDS ORDERED: EPINEPHrine INJ 1 MG/ML AMP ONE (08:37)
[2018-11-05] MEDS ORDERED: BUPIVACAINE 0.25% 30 ML VIAL ONE (08:37)
[2018-11-05] MEDS ORDERED: SODIUM CHLORIDE 0.9% PF 50 ML VIAL ONE (08:37)
[2018-11-05] MEDS ORDERED: VANCOMYCIN HCL 1000MG/20ML VIAL ONE (08:38)
[2018-11-05] MEDS ORDERED: ePHEDrine sulfate 50 MG/ML AMP ONE (08:49)
[2018-11-05] MEDS ORDERED: PHENYLEPHRINE 100MCG/ML 5ML SYR ONE (09:11)
[2018-11-05] MEDS ORDERED: PROPOFOL IV EMULSION 10 MG/ML 20 ML VIAL IV ONE (09:11)
[2018-11-05] MEDS ORDERED: ePHEDrine sulfate 50 MG/ML SYR ONE (09:11)
--- NOTE | 2018-11-05 10:40 | Post Operative Brief Note ---
Immediate Post Op Note v1 Date of Surgery November 05, 2018 Pre & Post Diagnosis Operation Date: 11/05/18 08:50 Pre-Op Diagnosis: Right Knee-- Advanced Degenerative Joint Disease with Retained Hardware Post-Op Diagnosis: Right Knee-- Advanced Degenerative Joint Disease with Retained Hardware Procedure Operation Date: 11/05/18 08:50 Actual Procedures p Right Total Knee Arthroplasty with Hardware Removal(Right) - Marvel Kitchen MD Surgeon Marvel Kitchen MD Petrophysical Engineer Carlos, PAC Estimated Blood Loss 50 Findings Consistent with Post-Op Diagnosis Fluids 1700 cc Specimens Right Knee Drains Guan Catheter (A 16 Greek guan catheter was inserted by ADRIANA Trevizo, without difficulty, clear yellow urine obtained, output to be monitored by Anesthesia.) Anesthesia Type Spinal MAC Complications none Disposition Accompanied Patient To Recovery: Yes Disposition: Recovery Room
--- NOTE | 2018-11-05 11:15 | Anesthesiology Progress Note ---
Date of Service November 05, 2018 Anesthesia Post Procedure Vital Signs Vital Signs: Temp Pulse Pulse Resp BP Pulse Ox 11/05/18 10:55 36.8 C 646 H 15 120/68 97 11/05/18 10:45 64 15 132/71 100 11/05/18 10:39 36.2 C L 84 12 132/76 98 11/05/18 06:41 36.6 C 72 18 150/83 H 99 Pulse 64 (646 was written in error) Transfer of Care Handoff Completed per policy Notes Mental Status: alert / awake / arousable Patient Amnestic to Procedure: Yes Nausea / Vomiting: adequately controlled Pain: adequately controlled Airway Patency, RR, SpO2: stable & adequate BP & HR: stable & adequate Neuraxial Anesthesia: was administered and sensory block is resolving Anesthetic Complications: no major complications apparent Notes: Pt awake, doing well, no complaints. VSS
--- NOTE | 2018-11-05 11:23 | XRay Report ---
XR knee RT 2V routine CLINICAL HISTORY: 68 years-old Male presenting with Surgical Post Op. TECHNIQUE: Frontal and crosstable lateral views of the right knee were obtained. COMPARISON: 09/02/2018. FINDINGS: Postsurgical changes of total right knee arthroplasty with patellar resurfacing. Expected intra-artic ular and soft tissue emphysema. Alignment of the tibial plateau component may be within the expected postsurgical range of normal. The tibial tunnel component of the prior ACL repair remains in place th ough the ACL repair has been removed with removal of the femoral tunnel component. No radiolucency allen bjacent to the arthroplasty. No periprosthetic fracture. Overlying skin boone. IMPRESSION: Expected postsurgical changes status post total right knee arthroplasty with patellar reconstruction and removal of the prior ACL repair. Electronically signed by: Chaka Mao M.D. 11/05/2018 11:21 AM
[2018-11-05] MEDS ORDERED: GLUCOSE 10 TABS/TUBE PO PRN (11:29)
[2018-11-05] MEDS ORDERED: ALUMINUM/MAGNESIUM SUSP 30 ML UDC PO PRN (11:29)
[2018-11-05] MEDS ORDERED: DEXTROSE 50% 50 ML SYRINGE IV PRN (11:29)
[2018-11-05] MEDS ORDERED: PHARMACY GLYCEMIC MGMT CONSULT STA (11:29)
[2018-11-05] MEDS ORDERED: NALOXONE HCL 0.4 MG/1 ML VIAL/CARP IV PRN (11:29)
[2018-11-05] MEDS ORDERED: GLUCOSE 40% GEL 15 GM TUBE PO PRN (11:29)
[2018-11-05] MEDS ORDERED: TAMSULOSIN HCL 0.4 MG CAP PO PRN (11:29)
[2018-11-05] MEDS ORDERED: PANTOprazole 40 MG TAB PO PRN (11:29)
[2018-11-05] MEDS ORDERED: MAGNESIUM HYDROXIDE SUSP 30 ML UDC PO PRN (11:29)
[2018-11-05] MEDS ORDERED: METOCLOPRAMIDE HCL INJ 5 MG/ML 2 ML VIAL IV PRN (11:29)
[2018-11-05] MEDS ORDERED: BISACODYL 10 MG SUPP PR PRN (11:29)
[2018-11-05] MEDS ORDERED: GLUCAGON FOR INJ 1 MG VIAL SQ PRN (11:29)
[2018-11-05] MEDS ORDERED: CARBOHYDRATES FOR HYPOGLYCEMIA PO PRN (11:29)
[2018-11-05] MEDS: OXYCODONE HCL IR 5 MG TAB (IMMEDIATE RELEASE) PO PRN ×2 (12:16→18:25)
[2018-11-05] MEDS: KETOROLAC TROMETHAMINE 15 MG/ML VIAL IV SCH ×2 (12:16→18:20)
[2018-11-05] MEDS: SODIUM CHLORIDE 0.9% 1000ML 1,000 ML IV SCH ×2 (12:16→19:34)
[2018-11-05] MEDS ORDERED: PHARMACY GLYCEMIC MGMT CONSULT PRN (12:31)
[2018-11-05] MEDS: ACETAMINOPHEN 500 MG TAB PO SCH ×2 (13:27→21:35)
--- NOTE | 2018-11-05 14:05 | Pharmacy Report ---
Pharmacy Glycemic Short Note 2 - Date of Service November 05, 2018 - Glycemic Short BSG Results (Last 24 hours): 11/05/18 11/05/18 11/05/18 06:56 10:43 12:09 POC Glucose 117 H 129 H 109 H OUTPATIENT ANTIDIABETIC REGIMEN: * Glimepiride 4mg PO qAM * Pioglitazone 30mg PO qAM * HbA1c: 6.4% (10/07/18) ASSESSMENT: * Mr Redd is a 68yo diabetic male POD 0 s/p R TKA with Dr Kitchen this morning. * BSGs today: 117, 109 * Patient was initiated on SQ insulin for correction only post-op. Will consider adding a carb ratio if BSGs become elevated. * It does not appear as though patient received any pre-op steroids. PLAN FOR INPATIENT GLYCEMIC CONTROL: * Hold outpatient oral diabetes medications * Resume Glimepiride tomorrow morning * Hold Pioglitazone during admission * Basal insulin * none for now * will consider adding if BSGs become elevated * Bolus insulin * NovoLog per scale ACHS or Q6hrs while NPO * Goal Range: Low 110 mg/dL - High 140 mg/dL * Correction Factor: 25 mg/dL/unit * Nutritional / Prandial insulin: none for now PLAN FOR DISCHARGE: * Patient's A1c (6.4%) indicates excellent glycemic control. * Resume patient's home regimen on discharge, unless patient reports having episodes of hypoglycemia as an outpatient.
--- NOTE | 2018-11-05 15:15 | Operative Report ---
DATE OF OPERATION: 11/05/2018 SURGEON: Marvel Kitchen MD SHIRT LINE OPERATOR: ADRIANA Dalal PREOPERATIVE DIAGNOSIS: Right knee degenerative joint disease. POSTOPERATIVE DIAGNOSIS: Right knee degenerative joint disease. PROCEDURES PERFORMED: 1. Right cemented posterior stabilized total knee arthroplasty. 2. Right knee hardware removal. COMPLICATIONS: None. ESTIMATED BLOOD LOSS: 50 mL. FLUID REPLACEMENT: 1700 mL crystalloid fluid replacement. TOURNIQUET TIME: 62 minutes at 300 mmHg. ANESTHESIA: Spinal with adductor canal block. DRAINS: None. SPECIMENS: Right knee sent for pathology. OPERATIVE INDICATIONS: The patient is a 68-year-old gentleman who has had a long history of knee problems. He underwent a left knee replacement several years ago and has done well from this. He has a history of multiple surgeries on his right knee including ACL reconstruction with allograft done in 2002. He has developed persistent progressive knee pain and discomfort and deformity. He has failed conservative care and elected to proceed with operative treatment. OPERATIVE FINDINGS: Operative findings were advanced right knee DJD. Extensive grade 4 [id number] disease in all 3 compartments, most severe in the medial side. A fixed varus deformity to his knee. He had retained hardware wire. Osteophytes in all 3 compartments. Moderate size joint effusion. OPERATIVE IMPLANTS: Operative implants consisted of: 1. A Biomet Vanguard size 75 right posterior stabilized femoral component. 2. A Biomet size 79 tibial tray. 3. A 12 mm posterior stabilized polyethylene insert. 4. A 31 x 8 all poly patella. OPERATIVE PROCEDURE: The patient was taken to the operating room, identified and placed on the operative table in supine position. All contact areas were appropriately padded. IV antibiotics were provided by the anesthesia team. Spinal anesthetic and adductor canal block had been provided in the holding area. Villeda catheter was placed in sterile fashion. A right thigh tourniquet was then placed and the right lower extremity was then prepped and draped in usual sterile fashion. The right leg was elevated and exsanguinated with Esmarch and tourniquet was placed at 300 mmHg. An anterior approach of the right knee was then performed through a longitudinal incision centered over the patella. Sharp dissection was carried through the subcutaneous tissue down to the level of the extensor mechanism. A medial parapatellar arthrotomy incision was made. Some subperiosteal dissection was carried out medially. The fat pad was resected from beneath the patellar tendon. The lateral patellofemoral ligament was released. The patella was subluxated laterally and the knee was flexed. The osteophytes were taken off the distal femur. There was no ACL remnant remaining. The PCL was released from distal femur. The tibia subluxated anteriorly. The external tibial alignment jig was then placed in the anterior face of the tibia and adjusted 16 mm medially. Proximal tibial cut was made to remove about a millimeter of bone from the most deficient aspect of the medial tibial plateau. Some osteophytes were taken off medial and posteromedially. Attention was then drawn to the femur. The distal femur was entered with a sharp drill bit. Intramedullary canal was suctioned. A right 6-degree valgus cutting guide was placed. Distal femoral cutting block was pinned in place. Distal femoral cut was made to take an additional 3 mm of bone off the distal femur. The femur was then sized to a size 75. We downsized this just slightly. The AP cutting block was pinned parallel to the epicondylar axis, which was 3 degrees of external rotation. The anterior cut, anterior chamfer, posterior cut, posterior chamfer cuts were made. Box cutting guide was placed and adjusted slightly lateral and the box cut was made. The knee was flexed. The remnants of the medial and lateral menisci were excised. The osteophytes were taken off the posterior aspect of the femur. I did have to remove the interference screw from the femur in order to complete the box cut. The trial femoral component was placed. Tibial tray was pinned in maximum external rotation and drill and stem punch were used to create defect in proximal tibia for the tibial tray. We very carefully assess this and we did not run into any hardware somewhat surprisingly. We over punched this to make sure there was no hardware in the vicinity and the tray was stable. We then trialed the knee and the 12 mm insert fit most appropriately. Attention was then drawn to the patella. The patella was cleaned of all soft tissues. Patella thickness measured 23 mm in thickness, cut down to 14. It was sized to a size 31 patella. Lug holes were drilled for a 31 patella. Lateral osteophyte was removed. Patella button was placed. Knee was taken through range of motion and patella tracked nicely with no thumbs test. Attention was then drawn toward placement of permanent components. All trial components removed. Bone plug was placed in the distal femur to limit blood loss. A double batch of Palacos G cement was mixed. I did add an additional gram of vancomycin due to his multiple surgeries in his diabetes status. A Biomet Vanguard size 75 right posterior stabilized femoral component, size 79 tibial tray, 12 mm posterior stabilized polyethylene insert, and a 31 x 8 all poly patella then cemented in place. Knee was brought down to full extension until the cement hardened. A final cement check was then performed. Pericapsular tissues were injected with a total 100 mL of a combination of 20 mL of Exparel, 30 mL of normal saline, 50 mL of 0.25% Marcaine with epinephrine. The patient did receive 1 gram of tranexamic acid. The tourniquet was then let down for final tourniquet time of 62 minutes. Hemostasis was assured with use of electrocautery. The wound was once again irrigated. The extensor mechanism was closed with combination of #1 PDS suture and #1 Vicryl suture in a [id number] fashion. Extensor mechanism was checked and found to be intact. The subcutaneous tissue was then closed with #2 Dexon suture in buried interrupted fashion. Skin was closed with skin boone. Leg was then cleaned, dried and a sterile dressing of Xeroform, 4 x 4, sterile cast padding, and Alec bandage were applied. The patient then transferred to the recovery room in stable condition. The patient tolerated the procedure well with no complications. All needle and sponge counts were correct at the end of the operation. I attest to the content of the Intraoperative Record and any orders documented therein. Any exceptions are noted below. JACKIED
[2018-11-05] MEDS: CHECK SCOPOLAMINE PATCH PLACEMENT SCH (16:20)
[2018-11-05] MEDS: CEFAZOLIN 2000MG 2,000 MG/15 ML SYR IV SCH (16:20)
[2018-11-05] MEDS: INSULIN ASPART 100 UNITS/ML 3 ML PEN SC SCH ×2 (18:18→21:46)
[2018-11-05] MEDS: FERROUS GLUCONATE 324 MG TAB PO SCH (18:20)
[2018-11-05] MEDS: ASCORBIC ACID 500 MG TAB PO SCH (18:20)
[2018-11-05] MEDS: HYDROmorphone INJ 0.5 MG/0.5 ML SYR IV PRN (20:22)
[2018-11-05] MEDS: DOCUSATE SODIUM 100 MG CAP PO SCH (21:35)
[2018-11-05] MEDS: CYCLOBENZAPRINE HCL 10 MG TAB PO SCH (21:35)
[2018-11-05] MEDS: GABAPENTIN 400 MG CAP PO SCH (21:35)
[2018-11-05] MEDS: SENNA 8.6 MG TAB PO SCH (21:35)
[2018-11-05] MEDS: ASPIRIN 81 MG ECTAB PO SCH (21:35)
[2018-11-05] MEDS: TAPENTADOL HCL ER 50 MG TABCR PO SCH (21:35)
[2018-11-06] MEDS: CHECK SCOPOLAMINE PATCH PLACEMENT SCH ×4 (00:39→23:29)
[2018-11-06] MEDS: CEFAZOLIN 2000MG 2,000 MG/15 ML SYR IV SCH (00:39)
[2018-11-06] MEDS: KETOROLAC TROMETHAMINE 15 MG/ML VIAL IV SCH ×5 (00:39→23:28)
[2018-11-06] MEDS: OXYCODONE HCL IR 5 MG TAB (IMMEDIATE RELEASE) PO PRN ×4 (01:46→21:58)
[2018-11-06] MEDS ORDERED: CEFAZOLIN 2000MG 2,000 MG/15 ML SYR IV SCH (06:00)
[2018-11-06] MEDS: ACETAMINOPHEN 500 MG TAB PO SCH ×3 (06:13→21:05)
[2018-11-06 06:24] LABS: Hematocrit (blood only) 38.2 % (42-52); Mean Corpuscular Volume 91.4 fL (80-100); Mean Platelet Volume 9.7 fL (7.4-10.4); Platelet Count 173 K/uL (130-400); RDW Standard Deviation 47.2 fL (36.4-46.3); Red Blood Count 4.18 M/uL (4.7-6.1)
[2018-11-06 06:53] LABS: BUN Creatinine Ratio 17.3 (10-20); Calcium 8.6 mg/dl (8.5-10.1); Creatinine Clr Calc Pharmacy 106.5 ml/min; Est GFR (African American) 103.3; Est GFR (Non-African American) 89.1
--- NOTE | 2018-11-06 07:17 | Anesthesiology Progress Note ---
Date of Service November 06, 2018 Anesthesia Post Procedure Vital Signs Vital Signs: Temp Pulse Pulse Resp BP Pulse Ox 11/06/18 02:59 36.8 C 79 16 153/76 H 95 11/05/18 23:22 37.1 C 68 16 152/74 H 98 11/05/18 19:02 36.7 C 68 18 154/78 H 96 11/05/18 16:15 36.8 C 55 L 18 144/69 H 98 11/05/18 14:42 36.5 C 79 18 157/72 H 98 11/05/18 13:22 94 H 18 170/84 H 98 11/05/18 12:28 74 18 159/88 H 11/05/18 11:50 18 122/83 76 L 11/05/18 11:20 36.5 C 59 L 16 142/81 H 98 11/05/18 10:55 36.8 C 646 H 15 120/68 97 11/05/18 10:45 64 15 132/71 100 11/05/18 10:39 36.2 C L 84 12 132/76 98 Pain Intensity Right Knee: Pain Intensity: 6 Notes Mental Status: alert / awake / arousable and participated in evaluation Nausea / Vomiting: adequately controlled Pain: adequately controlled Airway Patency, RR, SpO2: stable & adequate BP & HR: stable & adequate Hydration State: stable & adequate Neuraxial Anesthesia: sensory block resolved Anesthetic Complications: Pt Satisfied with anesthetic care
[2018-11-06] MEDS: ASCORBIC ACID 500 MG TAB PO SCH ×2 (08:30→17:49)
[2018-11-06] MEDS: FERROUS GLUCONATE 324 MG TAB PO SCH ×2 (08:30→17:49)
[2018-11-06] MEDS: MULTIVITAMIN TAB PO SCH (08:31)
[2018-11-06] MEDS: DOCUSATE SODIUM 100 MG CAP PO SCH ×2 (08:31→21:05)
[2018-11-06] MEDS: GLIMEPIRIDE 2 MG TAB PO SCH (08:31)
[2018-11-06] MEDS: ASPIRIN 81 MG ECTAB PO SCH ×2 (08:31→21:06)
[2018-11-06] MEDS: TAPENTADOL HCL ER 50 MG TABCR PO SCH ×2 (08:32→21:05)
[2018-11-06] MEDS: LISINOPRIL 10 MG TAB PO SCH (08:32)
[2018-11-06] MEDS: GABAPENTIN 400 MG CAP PO SCH ×2 (08:32→21:06)
[2018-11-06] MEDS: INSULIN ASPART 100 UNITS/ML 3 ML PEN SC SCH ×4 (08:34→21:20)
[2018-11-06] MEDS ORDERED: PIOGLITAZONE 30 MG PO SCH (09:00)
[2018-11-06] MEDS: HYDROmorphone INJ 0.5 MG/0.5 ML SYR IV PRN ×2 (13:25→19:50)
[2018-11-06] MEDS: LR 500ML BOLUS, THEN 15ML/HR IV SCH (19:16)
[2018-11-06] MEDS: SENNA 8.6 MG TAB PO SCH (21:06)
[2018-11-06] MEDS: CYCLOBENZAPRINE HCL 10 MG TAB PO SCH (21:06)
--- NOTE | 2018-11-06 21:14 | Progress Note ---
DATE: 11/06/2018 SUBJECTIVE: A 68-year-old gentleman postop day 1 from a right knee replacement. He is doing pretty well. Having quite a bit more pain today after therapy. No chest pain or shortness of breath. Not feeling dizzy or lightheaded. Pretty isolated knee pain. OBJECTIVE: VITAL SIGNS: Temperature 37.0. Vital signs stable. GENERAL: Reveals a pleasant, middle-aged male. He is sitting up in bed, looks reasonably comfortable. EXTREMITIES: Examination of the right leg reveals the dressing to be clean, dry, and intact. He can dorsiflex and plantarflex his foot appropriately. He is neurologically intact. LABORATORY DATA: Hemoglobin 13.0. Hematocrit 38.2. Electrolytes are stable. ASSESSMENT: A 68-year-old gentleman postop day 1 from a right knee replacement, doing relatively well. A little bit more pain today, but not out of the ordinary. He is neurologically intact. PLAN: 1. DVT prophylaxis including thigh high TEDs, SCDs, and aspirin twice a day. 2. PT/OT. Weight bear as tolerated. Right total knee protocol. 3. Pain control, doing okay with current pain regimen. 4. Disposition: Plan to discharge to home with some home health once adequately recovered and pain controlled.
[2018-11-07] MEDS: OXYCODONE HCL IR 5 MG TAB (IMMEDIATE RELEASE) PO PRN ×2 (04:52→10:59)
[2018-11-07] MEDS: ACETAMINOPHEN 500 MG TAB PO SCH (06:17)
[2018-11-07] MEDS: KETOROLAC TROMETHAMINE 15 MG/ML VIAL IV SCH (06:18)
[2018-11-07] MEDS: CHECK SCOPOLAMINE PATCH PLACEMENT SCH (07:20)
--- NOTE | 2018-11-07 07:22 | Progress Note ---
DATE: 11/07/2018 SUBJECTIVE: A 68-year-old gentleman postop day 2 from a right knee replacement. He is doing okay. Pain seems to be a little bit better today. No chest pain or shortness of breath. Not feeling dizzy or lightheaded. OBJECTIVE: VITAL SIGNS: Temperature 36.5. Vital signs stable. GENERAL: Physical examination shows a pleasant, middle-aged male. He is lying in bed, looks pretty comfortable this morning. EXTREMITIES: Examination of the right leg reveals the leg to be well aligned. Dressing is clean, dry, and intact. He can dorsiflex and plantarflex his foot appropriately. He is neurologically intact. ASSESSMENT: A 68-year-old gentleman postop day 2 from right knee replacement, doing pretty well. PLAN: 1. DVT prophylaxis including thigh-high TEDs, SCDs, and aspirin twice a day. 2. PT/OT. Weight bear as tolerated. Right total knee protocol. 3. Pain control, doing okay with current pain regimen. 4. Disposition: Plan to discharge to home with some home health later today.
[2018-11-07] MEDS: ASPIRIN 81 MG ECTAB PO SCH (08:27)
[2018-11-07] MEDS: FERROUS GLUCONATE 324 MG TAB PO SCH (08:27)
[2018-11-07] MEDS: ASCORBIC ACID 500 MG TAB PO SCH (08:27)
[2018-11-07] MEDS: MULTIVITAMIN TAB PO SCH (08:27)
[2018-11-07] MEDS: GABAPENTIN 400 MG CAP PO SCH (08:27)
[2018-11-07] MEDS: GLIMEPIRIDE 2 MG TAB PO SCH (08:28)
[2018-11-07] MEDS: DOCUSATE SODIUM 100 MG CAP PO SCH (08:28)
[2018-11-07] MEDS: LISINOPRIL 10 MG TAB PO SCH (08:28)
[2018-11-07] MEDS: INSULIN ASPART 100 UNITS/ML 3 ML PEN SC SCH (08:29)
[2018-11-07] MEDS: TAPENTADOL HCL ER 50 MG TABCR PO SCH (08:29)
--- NOTE | 2018-11-08 14:41 | Discharge Summary ---
ADMITTING PHYSICIAN AND SURGEON: Marvel Kitchen MD ADMITTING DIAGNOSIS: Right knee degenerative joint disease. SURGERY PERFORMED: Right total knee arthroplasty. SECONDARY DIAGNOSES: Diabetes, hypertension, obesity, kidney stones, sleep apnea. CONSULTS: None obtained. HOSPITAL COURSE: The patient was admitted on 11/05/2018, underwent total knee arthroplasty, tolerated the procedure well. There were no complications. He was transferred to the PACU postoperatively and later to the orthopedic floor for further care. He was given Ancef for antibiotic prophylaxis, CHERELLE stockings, SCDs and aspirin for DVT prophylaxis. Hemoglobin, hematocrit and vital signs were monitored during his hospital stay and remained stable, did not require any blood transfusions. There were no complications. By postoperative day 2, he was tolerating a diabetic diet. Pain was controlled with oral pain medicine. He was participating in physical therapy. On postop day 2, he was discharged home, set up with home health services, was given printed discharge instructions as well as new prescriptions for extra-strength Tylenol, aspirin and oxycodone. Continue his home medications, continue physical therapy, weightbearing as tolerated, CHERELLE stockings. Follow up approximately 2 weeks postop or sooner if there are any problems or concerns.
== END 2018-11-07 11:00 | disposition home health service (06) | DRG 470 ==
LOC: ASU 06:12 → 3E 11:25